=== PATIENT | male | born 1950 | race Caucasian/White ===

== ENCOUNTER → 2016-08-30 07:17 | Day surgery (SDC) | payer MEDICARE ==
--- NOTE | 2016-08-26 22:08 | HP ---
ADMITTING HISTORY AND PHYSICAL: DATE OF ADMISSION: 08/30/16 ADMITTING DIAGNOSES: 1. Right hydronephrosis. 2. History of bladder calculi. 3. Recurrent rectal cancer. PLANNED PROCEDURE: Right cystoscopy, right retrograde, right stent change, possible ureteroscopy. SURGEON: Dr. Cortez. HISTORY AND PHYSICAL: Guevara Turner is a 66-year-old gentleman with a history of recurrent rectal cancer. He had undergone low anterior resection in 2003 and in 2010 was noted to have moderately differentiated adenocarcinoma. He has had several issues related to that including recent imaging, which showed fluid collection in the right pararectal space, which appears to be in close proximity to the posterior wall of the bladder and concerning for a possible fistula. In addition, he has chronic right hydronephrosis, which has been managed with ureteral stent. PAST MEDICAL HISTORY: Significant for the above described recurrent rectal cancer. MEDICATIONS: On admission: 1. Doxycycline 100 mg b.i.d. 2. Fentanyl patch. 3. Escitalopram 10 mg daily. 4. Oxycodone p.r.n. ALLERGIES: No known drug allergies. PHYSICAL EXAMINATION GENERAL: Reveals a pleasant, middle-aged gentleman. VITAL SIGNS: Blood pressure is 112/70, pulse 89 per minute, oxygen saturation 98% on room air, temperature 96. LUNGS: Clear bilaterally. CARDIOVASCULAR: Regular rate and rhythm. S1, S2. ABDOMEN: There is mild right flank tenderness. 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 PLAN: Planned procedure is cystoscopy, right retrograde, right stent change, possible ureteroscopy. CC: Dr. Marcos Espinoza* [id number]/[facility] #: [id number] [facility]
[~2016-08-30 07:17] MED LIST: Buffered Lidocaine 1% SYR 3ML* 3 ML/SYR SYRINGE INTRADERM ONE; Dexamethasone IV* 4 MG/ML 1 ML (4 MG) IV SLOW PU ONE; Dexamethasone IV* 4 MG/ML 1 ML (4 MG) ONE; DiMENhydriNATE IV* 50 MG/ML VIAL IV PUSH PRN; Famotidine IV* 10 MG/ML 2 ML (20 mg) IV ONE; Famotidine IV* 10 MG/ML 2 ML (20 mg) ONE; Iohexol 180 (CONTRAST) 10 ML SDV IV ONE; Midazolam* 1 MG/ML 2 ML VIAL (2 MG) ONE; cefTRIAXone(*) 2 GM ADDV.VIAL IVPB ONE; fentaNYL* 50 MCG/ML 2 ML VIAL (100 MCG VIAL) IV PRN; fentaNYL* 50 MCG/ML 2 ML VIAL (100 MCG VIAL) ONE
--- NOTE | 2016-08-30 09:54 | RAD ---
INDICATION: Right stent insertion COMPARISONS: CT dated September 26, 2016 TECHNIQUE: Fluoroscopy was provided for a retrograde pyelogram and stent placement. Total fluoroscopy time is: 16 seconds FINDINGS: Multiple digital spot images demonstrate contrast within the renal pelvis is somewhat is markedly dilated. Ureteral stents are noted. An inflatable balloon is noted along the ureter. IMPRESSION: FLUOROSCOPY WAS PROVIDED FOR A RETROGRADE PYELOGRAM AND STENT PLACEMENT CPT II Codes: 6045F
--- NOTE | 2016-08-30 10:21 | OP ---
DATE OF OPERATION: 08/30/2016 - [facility] DATE OF : 1950 - AGE: 66-year-old male. SURGEON: Dr. Landry Cortez. ANESTHESIOLOGIST: Dr. Roby Navarro. ANESTHESIA: General. PRE-OP DIAGNOSIS: 1. Right hydronephrosis. 2. Advanced rectal cancer. POST-OP DIAGNOSIS: 1. Right hydronephrosis. 2. Advanced rectal cancer. OPERATIVE PROCEDURE: Cystoscopy, right stent removal, right retrograde pyelogram, right ureteral balloon dilatation, and right stent insertion. COMPLICATIONS: None. STENT USED: 8.5 Kenyan 28 cm silicone stent right ureter. INDICATIONS: Guevara Turner Jr. is a 66-year-old gentleman who unfortunately has advanced rectal carcinoma leading to right hydronephrosis. He has been managed with an indwelling right stent. In addition, he has a second stent which is looped in the proximal right ureter and he is now being brought in for a change of the right ureteral stent. POSTOPERATIVE CONDITION: Stable. DESCRIPTION OF PROCEDURE: After induction of general anesthesia, the patient was placed in the dorsal lithotomy position. Cystoscopy revealed a stricture in the proximal bulbar urethra with very rigid noncompliant urethra. The prostate is mild to moderately enlarged. The bladder was examined. There was no evidence of any bladder calculi noted. There were some calcifications noted on the distal end of the previously placed stent. The stent was removed. A right retrograde pyelogram revealed severe right hydronephrosis with proximal hydroureter. Balloon dilatation of the proximal mid and distal right ureter was carried out successfully under fluoroscopic monitoring. Once this was done , a new 8.5 Kenyan 28 cm silicone stent was introduced and positioned under fluoroscopy with good proximal and distal positioning obtained. A 20 Kenyan Miles was placed with temporary bladder drainage. The patient tolerated the procedure satisfactorily and was transferred back to the recovery area in stable condition. CC: Dr. Marcos Espinoza; Dr. Edward Ramsey* [id number]/[facility] #: [id number] [facility]ENTERJose
[2016-08-30 11:39] VITALS: BP 159/77
== END | disposition home or self-care (01) ==
LOC: OR 07:17
PROVIDERS: ATTEND Urology
DX: N13.1 Hydronephrosis with ureteral stricture, not elsewhere classified (principal); C61 Malignant neoplasm of prostate; Z87.891 Personal history of nicotine dependence; R01.1 Cardiac murmur, unspecified; I71.4 Abdominal aortic aneurysm, without rupture; D64.9 Anemia, unspecified
CPT/HCPCS: 74420; C1876; J0696; J1100; J2250; J3010

== ENCOUNTER 2016-12-06 08:19 | Day surgery (SDC) | payer MEDICARE ==
--- NOTE | 2016-12-01 20:00 | HP ---
CC: Dr. Marcos Espinoza * ADMITTING HISTORY AND PHYSICAL: DATE OF ADMISSION: 12/06/16 ADMITTING DIAGNOSES: 1. Advanced rectal carcinoma. 2. Bilateral hydronephrosis. PLANNED PROCEDURE: Cystoscopy, bilateral retrograde, left stent insertion and right stent change. SURGEON: Dr. Cortez. HISTORY OF PRESENT ILLNESS: Guevara Turner is a 66-year-old gentleman with a history of advanced rectal carcinoma. He has been managed with an indwelling right ureteral stent (actually has 2 stents in the right collecting system). He recently has been complaining of increasing right flank pain and was noted on a recent CT to have worsening of right-sided hydronephrosis and new onset of left hydronephrosis. PAST MEDICAL HISTORY: Significant for advanced rectal carcinoma. MEDICATIONS: On admission: 1. Uroxatral 10 mg daily. 2. Escitalopram 10 mg daily. 3. Oxycodone and fentanyl p.r.n. ALLERGIES: No known drug allergies. PHYSICAL EXAMINATION GENERAL: A pleasant, middle-aged gentleman who appears uncomfortable. VITAL SIGNS: Blood pressure is 118/72, pulse 80 per minute and regular, temperature 97.2, oxygen saturation 97% on room air. LUNGS: Clear bilaterally. CARDIOVASCULAR: Regular rate and rhythm. S1, S2. ABDOMEN: Soft with right flank tenderness. IMPRESSION: A 66-year-old gentleman with advanced rectal cancer and a large mass posterior to the bladder related to the malignancy which I suspect is causing bilateral ureteral obstruction. Plan is for bilateral retrograde, left stent insertion, and right stent change. [id number]/[facility] #: [id number] [facility]
[~2016-12-06 08:19] MED LIST changes: +Buffered Lidocaine 0.9% SYRIN* 5 ML/SYR SYRINGE INTRADERM ONE; +Buffered Lidocaine 0.9% SYRIN* 5 ML/SYR SYRINGE ONE; -Buffered Lidocaine 1% SYR 3ML* 3 ML/SYR SYRINGE INTRADERM ONE; -Dexamethasone IV* 4 MG/ML 1 ML (4 MG) IV SLOW PU ONE; -Dexamethasone IV* 4 MG/ML 1 ML (4 MG) ONE; -DiMENhydriNATE IV* 50 MG/ML VIAL IV PUSH PRN; -Famotidine IV* 10 MG/ML 2 ML (20 mg) IV ONE; -Famotidine IV* 10 MG/ML 2 ML (20 mg) ONE; -Iohexol 180 (CONTRAST) 10 ML SDV IV ONE; -Midazolam* 1 MG/ML 2 ML VIAL (2 MG) ONE; +ceFAZolin 2 GM PREMIX(*) 0 GM/0 ML BAG IVPB ONE; -cefTRIAXone(*) 2 GM ADDV.VIAL IVPB ONE; -fentaNYL* 50 MCG/ML 2 ML VIAL (100 MCG VIAL) IV PRN; -fentaNYL* 50 MCG/ML 2 ML VIAL (100 MCG VIAL) ONE
[2016-12-06] MEDS ORDERED: Iohexol 180 (CONTRAST) 10 ML SDV IV ONE (09:40)
[2016-12-06] MEDS ORDERED: cefTRIAXone(*) 2 GM ADDV.VIAL IVPB ONE (10:19)
[2016-12-06] MEDS ORDERED: fentaNYL* 50 MCG/ML 2 ML VIAL (100 MCG VIAL) ONE ×2 (10:22→13:10)
[2016-12-06] MEDS ORDERED: Fluorescein 10% INJ* 100 MG/ML AMP ONE (10:43)
[2016-12-06] MEDS ORDERED: DiMENhydriNATE IV* 50 MG/ML VIAL IV PUSH PRN (10:52)
[2016-12-06] MEDS ORDERED: Ondansetron INJ* 2 MG/ML VIAL IV PRN (10:52)
[2016-12-06] MEDS ORDERED: Furosemide IV* 10 MG/ML 2 ML VIAL (20 MG) ONE (12:05)
[2016-12-06] MEDS ORDERED: Lidocaine 2% PF * 5 ML VIAL ONE (12:05)
[2016-12-06] MEDS ORDERED: Propofol* 10 MG/ML 20 ML BTL IV PUSH ONE (12:05)
[2016-12-06] MEDS ORDERED: Lidocaine 2% JELLY* 6 ML JELLY TOPICAL ONE (12:55)
[2016-12-06] MEDS: fentaNYL* 50 MCG/ML 2 ML VIAL (100 MCG VIAL) IV PRN ×2 (13:12→13:44)
[2016-12-06 14:12] VITALS: BP 131/59
--- NOTE | 2016-12-06 15:51 | RAD ---
INDICATION: Bladder tumor, bilateral hydronephrosis, stent placement COMPARISONS: August 30, 2016 TECHNIQUE: Fluoroscopy was provided for a retrograde pyelogram and stent placement. Total fluoroscopy time is: 29 seconds FINDINGS: Contrast is noted within the renal collecting systems bilaterally. Bilateral ureteral stents are noted IMPRESSION: FLUOROSCOPY WAS PROVIDED FOR A RETROGRADE PYELOGRAM AND STENT PLACEMENT CPT II Codes: 6045F
--- NOTE | 2016-12-07 11:11 | OP ---
CC: Marcos Espinoza MD; Edward Ramsey MD * DATE OF OPERATION: 12/06/16 - [facility] DATE OF : 48 SURGEON: Landry Cortez MD. ANESTHESIOLOGIST: Dr. White. ANESTHESIA: General. PRE-OP DIAGNOSES: 1. Bilateral hydronephrosis. 2. Hematuria. POST-OP DIAGNOSES: 1. Bilateral hydronephrosis. 2. Hematuria. 3. 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 OPERATIVE PROCEDURE: 1. Cystoscopy, right stent removal. 2. Transurethral resection and fulguration of bladder tumor (5 to 6 cm). 3. Bilateral retrograde pyelograms. 4. Bilateral ureteral dilatation. 5. Bilateral ureteral stent insertion. COMPLICATIONS: None. POSTOPERATIVE CONDITION: Stable. OPERATIVE FINDINGS: 1. Bilateral hydronephrosis. 2. Solid tumor, floor of bladder covering area of trigone and bladder neck. STENT USED: An 8.5-Burkinan 28-cm silicone stent, right and left ureter. INDICATIONS: Guevara Turner is a 66-year-old gentleman who unfortunately has advanced rectal carcinoma. He was recently noted to have a fairly large mass on CT scan, pressing on the bladder and leading to bilateral hydronephrosis. DESCRIPTION OF PROCEDURE: After induction of general anesthesia, the patient was placed in dorsal lithotomy position. Sequential compression devices were in place and functioning. Initial cystoscopy revealed a rigid lead-pipe type of urethra, which had been noted previously also. The bladder was entered. The entire trigone and floor of bladder was distorted secondary to what appeared to be solid tumor tissue, which I suspect is the tumor infiltrating into the bladder. The previously placed right-sided stent was noted and was difficult to access, again due to the noncompliance and rigidity of the urethra. Using a flexible grasper, the stent was removed (it broke into 2 fragments and both fragments were successfully removed). Right retrograde pyelogram revealed right hydronephrosis and again, the ureter was noted also to be very narrow and very rigid and compressed, probably due to tumor and fibrosis. The ureter was dilated to 8-Burkinan and then an 8.5-Burkinan stent was introduced on the right side. Attention was directed to the left side. I could not visualize the left orifice due to the tumor and using a resectoscope, transurethral resection and fulguration of the tumor covering the floor of the bladder was carried out successfully. Once this was done, I was able to visualize what may be the left orifice and a guidewire was introduced and advanced under fluoroscopic monitoring. Retrograde pyelogram revealed left hydronephrosis with a dilated tortuous proximal left ureter. The left ureter was also dilated successfully to 8-Burkinan and an 8.5-Burkinan 28-cm silicone stent was introduced and positioned under fluoroscopy with good proximal and distal positioning obtained. A 20-Burkinan Miles was placed for bladder drainage. The patient tolerated the procedure satisfactorily and was transferred back to the recovery area in stable condition. [id number]/[facility] #: [id number] [facility]D
== END 2016-12-06 14:14 | disposition home or self-care (01) ==
LOC: OR 08:19
PROVIDERS: ATTEND Urology
DX: C79.11 Secondary malignant neoplasm of bladder (principal); C20 Malignant neoplasm of rectum; N13.30 Unspecified hydronephrosis; Z79.1 Long term (current) use of non-steroidal anti-inflammatories (NSAID); Z79.891 Long term (current) use of opiate analgesic
CPT/HCPCS: 74420; 88305; 88341; 88342; A9270-GY; C1876; J0690; J0696; J1940; J2704; J3010